=== PATIENT | female | born 1970 | race African-American/Black ===

== ENCOUNTER 2019-09-19 08:00 | Inpatient (IN) | payer OTHER ==
[2019-11-13] MEDS ORDERED: CEFAZOLIN 2 GM in DEXTROSE 5%-WATER - 100 ML IVPB ONE (07:00)
[2019-11-13] MEDS ORDERED: DEXAMETHASONE SOD PHOSPHATE/PF 10 MG/ML SDV ONE (07:11)
[2019-11-13] MEDS ORDERED: MIDAZOLAM HCL 2 MG/2 ML SINGLE DOSE VIAL ONE ×2 (07:12)
[2019-11-13] MEDS ORDERED: SUCCINYLCHOLINE CHLORIDE 200 MG/10 ML SYRINGE ONE (07:25)
[2019-11-13] MEDS ORDERED: ROCURONIUM BROMIDE 100 MG/10 ML VIAL ONE (07:25)
[2019-11-13] MEDS ORDERED: PROPOFOL 20 ML ONE (07:25)
[2019-11-13] MEDS ORDERED: fentaNYL CITRATE 250 MCG/5 ML VIAL ONE (07:25)
[2019-11-13] MEDS ORDERED: ceFAZolin SODIUM 1 GM VIAL ONE (07:26)
--- NOTE | 2019-11-13 08:10 | HP ---
Admitting History and Physical - Primary Care Physician PCP: Lanre Melendez - Admission Chief Complaint: pain, fibroids , menorrhagia History of Present Illness: pain History Source: Patient Limitations to Obtaining History: No Limitations - Past Medical History PMO PROJECT MANAGER: No: Alzheimer's, CVA, Dementia, Migraine, Multiple Sclerosis, Peripheral Neuropathy, Parkinson's, Seizure, Syncope, TIA, Vertigo, Other Cardiovascular: No: AFIB, Aneurysm, Aortic Insufficiency, Aortic Stenosis, CAD, CHF, Deep Vein Thrombosis, HTN, Hyperlipdemia, AR, Mitral Insufficiency, Mitral Stenosis, Murmur, Pulmonary Hypertension, Other Pulmonary: No: Asthma, Bronchitis, Cancer, COPD, O2 Dependent, Pneumonia, Previously Intubated, Pulmonary Embolus, Pulmonary Fibrosis, Sleep Apnea, Other Gastrointestinal: No: Ascites, Cancer, Constipation, Crohn's Disease, Diverticulitis, Diverticulosis, Esophageal Varices, Gastritis, GERD, GI Bleed, Hemorrhoids, Hiatal Hernia, Inflamatory Bowel Disease, Irritable Bowel Disease, Pancreatitis, Peptic Ulcer Disease, Ulcerative Colitis, Other Hepatobiliary: No: Cirrhosis, Cholelithiasis, Cholecystitis, Choledocholithiasis, Hepatitis A, Hepatitis B, Hepatitis C, Other Renal/: No: Renal Failure, Renal Inusuff, BPH, Cancer, Hematuria, Hemodialysis, Neurogenic Bladder, Renal Calculi, UTI, Other Reproductive: No: Ectopic , Endometriosis, Fibroids, PID, Polycystic Ovary Syndrome, Postmenopausal, Other ...LMP: 11/12/19 ...: No Heme/Onc: No: Anemia, B12 Deficiency, Bleeding Disorder, Cancer, Current Chemotherapy, Current Radiation Therapy, Hemochromatosis, Hypercoaguable State, Myeloproliferative Synd, Sickle Cell Disease, Sickle Cell Trait, Thrombocytopenia, Other Infectious Disease: No: AIDS, C-Diff, Herpes Zoster, HIV, MRSA, STD's, Tuberculosis, VREF, Other Psych: No: Addictions, Anxiety, Bipolar, Depression, Panic, Psychosis, Schizophrenia, Other Musculoskeletal: No: Bursitis, Chronic low back pain, Hemiparesis, Hemiplegia, Osteoarthritis, Paraplegia, Other Rheumatology: No: Fibromyalgia, Gout, Lupus, Rheumatoid Arthritis, Sarcoidosis, Vasculitis, Other ENT: No: Allergic Rhinitis, Sinusitis, Other Endocrine: No: Rob's Disease, [place]'s Disease, Diabetes Insipidus, Diabetes Mellitus, Hyperparathyroidism, Hyperthyroidism, Hypothyroidism, Osteopenia, SIADH, Other Dermatology: No: Basal Cell, Cellulitis, Eczema, Melanoma, Psoriasis, Squamous Cell, Other - Past Surgical History Additional Past Surgical History: myomectomies - Advance Directives Advance Directives: Yes: Living Will, Health Care Proxy - Smoking History Smoking history: Never smoked Have you smoked in the past 12 months: No - Alcohol/Substance Use Hx Alcohol Use: No History of Substance Use: reports: None - Social History Usual Living Arrangement: Yes: With Significant Other Do you think of yourself as: Straight/Heterosexual ADL: Independent History of Recent Travel: No Home Medications - Allergies Allergies/Adverse Reactions: Allergies Allergy/AdvReac Type Severity Reaction Status Date / Time seasonal allergies Allergy Uncoded 11/12/19 15:04 - Home Medications Home Medications: Ambulatory Orders Albuterol 0.083% Nebulizer Grace [Ventolin 0.083% Nebulizer Soln -] 1 neb NEB ONCE PRN 11/12/19 Famotidine 20 mg PO DAILY 11/12/19 Metoprolol Succinate 25 mg PO DAILY PRN 11/12/19 Omeprazole 40 mg PO DAILY 11/12/19 Family Medical History Family History: Denies Review of Systems - Review of Systems Constitutional: reports: No Symptoms Eyes: reports: No Symptoms HENT: reports: No Symptoms Neck: reports: No Symptoms Cardiovascular: reports: No Symptoms Respiratory: reports: No Symptoms Gastrointestinal: reports: No Symptoms Genitourinary: reports: No Symptoms Breasts: reports: No Symptoms Reported Musculoskeletal: reports: No Symptoms Integumentary: reports: No Symptoms Neurological: reports: No Symptoms Endocrine: reports: No Symptoms Hematology/Lymphatic: reports: No Symptoms Psychiatric: reports: No Symptoms Physical Examination Vital Signs: Vital Signs Temperature 98.0 F 11/13/19 06:57 Pulse Rate 80 11/13/19 06:57 Respiratory Rate 18 11/13/19 06:57 Blood Pressure 121/74 11/13/19 06:57 O2 Sat by Pulse Oximetry (%) 97 11/13/19 06:57 Constitutional: Yes: Well Nourished, No Distress, Calm Eyes: Yes: WNL, Conjunctiva Clear, EOM Intact HENT: Yes: WNL, Atraumatic, Normocephalic Neck: Yes: WNL, Supple, Trachea Midline Cardiovascular: Yes: WNL, Regular Rate and Rhythm Respiratory: Yes: WNL, Regular, CTA Bilaterally Gastrointestinal: Yes: WNL, Normal Bowel Sounds, Soft ...Rectal Exam: Yes: WNL Renal/: Yes: WNL Breast(s): Yes: WNL Musculoskeletal: Yes: WNL Extremities: Yes: WNL Edema: No Peripheral Pulses WNL: Yes Integumentary: Yes: WNL Wound/Incision: Yes: Clean/Dry, Well Approximated Neurological: Yes: WNL, Alert, Oriented ...Motor Strength: WNL Psychiatric: Yes: WNL, Alert, Oriented Assessment/Plan for mian, one oopherectomy,
[2019-11-13] MEDS ORDERED: HYDROmorphone HCl 2 MG/ML VIAL ONE (08:31)
[2019-11-13] MEDS ORDERED: GLYCOPYRROLATE 0.2 MG/1 ML VIAL ONE (08:47)
[2019-11-13] MEDS ORDERED: DEXAMETHASONE SOD PHOSPHATE 4 MG/1 ML VIAL ONE (08:47)
[2019-11-13] MEDS ORDERED: KETOROLAC TROMETHAMINE 30 MG/1 ML VIAL ONE (08:47)
[2019-11-13] MEDS ORDERED: METOPROLOL TARTRATE 5 MG/5 ML VIAL ONE (08:47)
[2019-11-13] MEDS ORDERED: NEOSTIGMINE METHYLSULFATE 0.5 MG/ML - 10 ML MDV ONE (08:50)
[2019-11-13] MEDS ORDERED: oxyCODONE HCL 5 MG TABLET PO PRN ×2 (10:29)
[2019-11-13] MEDS ORDERED: IBUPROFEN 800 MG/8 ML IJ IVPB PRN (10:29)
[2019-11-13] MEDS ORDERED: ACETAMINOPHEN 325 MG TABLET (FP) PO PRN (10:29)
--- NOTE | 2019-11-13 10:37 | OP ---
Operative Note - Note: Operative Date: 11/13/19 Pre-Operative Diagnosis: fibroids, menorrhagia, pain Operation: mian, salpingectomies x 2 , ovaries saved Findings: adhesions Post-Operative Diagnosis: Same as Pre-op Surgeon: Lanre Melendez Saddle Stitching Machine Operator: Anoop Edmonds Anesthesiologist/COMMUNITY MIDWIFE: Tristen Martinez Anesthesia: General Estimated Blood Loss (mls): 250 (no complication s) Operative Report Dictated: Yes
[2019-11-13] MEDS ORDERED: ACETAMINOPHEN 1000 MG/100 ML VIAL (NON FORMULARY) IVPB ONE ×2 (10:45→10:55)
[2019-11-13] MEDS ORDERED: HYDROmorphone *PCA* 10MG/50ML DISP.SYRIN PCA ONE (11:00)
[2019-11-13 14:17] VITALS: BMI 32.9
--- NOTE | 2019-11-13 14:35 | PN ---
Progress Note (short form) - Note Progress Note: I assisted Dr. Melendez at this surgery for the entirety of the case.
[2019-11-13] MEDS ORDERED: CEFAZOLIN 2 GM in DEXTROSE 5%-WATER - 100 ML IVPB SCH (18:00)
[2019-11-13] MEDS: CEFAZOLIN 2 GM/D5W 2 GM/50 ML ML IVPB SCH (18:06)
[2019-11-13] MEDS: LACTATED RINGERS SOLUTION 1,000 ML IV SCH (19:00)
[2019-11-14] MEDS: CEFAZOLIN 2 GM/D5W 2 GM/50 ML ML IVPB SCH (01:19)
[2019-11-14] MEDS: LACTATED RINGERS SOLUTION 1,000 ML IV SCH ×3 (01:35→19:10)
[2019-11-14 07:27] LABS: BASO % 0.2 % (0-2.0); HEMATOCRIT 33.8 % (32.4-45.2); HEMOGLOBIN 11.5 GM/dL (10.7-15.3); LYMPH % 13.9 % (8-40); MCH 28.8 pg (25.7-33.7); MEAN CELL VOLUME 84.7 fl (80-96); MEAN PLT VOLUME 7.7 fl (7.5-11.1); MONO % 11.6 % (3.8-10.2); NEUT % 74.3 % (42.8-82.8); PLATELET COUNT 291 K/MM3 (134-434); RBC 3.99 M/mm3 (3.60-5.2); RDW 15.7 % (11.6-15.6); WHITE BLOOD COUNT 11.7 K/mm3 (4.0-10.0)
--- NOTE | 2019-11-14 07:34 | PN ---
Progress Note (short form) - Note Progress Note: pod 1, doing well, afebrile, positive bs, will be oob ,and ambulating, , dc pt home tomorrow
[2019-11-14] MEDS ORDERED: IBUPROFEN 600 MG TABLET (FP) PO PRN (08:08)
[2019-11-14] MEDS: PANTOPRAZOLE 40 MG TABLET PO SCH (09:40)
[2019-11-14] MEDS: LACTATED RINGERS SOLUTION 1,000 ML/1,000 ML INFUS.BAG IV SCH ×2 (09:40→11:49)
[2019-11-14] MEDS: ONDANSETRON 4 MG/2 ML VIAL IVPUSH PRN (13:27)
[2019-11-14] MEDS: HYDROmorphone *PCA* 10MG/50ML DISP.SYRIN PCA SCH ×2 (17:06→19:25)
[2019-11-14] MEDS ORDERED: PCA PUMP NR ONE (19:12)
[2019-11-15] MEDS: LACTATED RINGERS SOLUTION 1,000 ML IV SCH ×2 (02:54→14:24)
[2019-11-15] MEDS: PANTOPRAZOLE 40 MG TABLET PO SCH (06:24)
--- NOTE | 2019-11-15 08:56 | PN ---
Progress Note (short form) - Note Progress Note: pod 2 , doing well, afebrile for dc home today
--- NOTE | 2019-11-15 08:57 | DS ---
"Physical Examination Vital Signs: Vital Signs Temperature 98.5 F 11/15/19 04:45 Pulse Rate 86 11/15/19 04:45 Respiratory Rate 18 11/15/19 04:45 Blood Pressure 118/66 11/15/19 04:45 O2 Sat by Pulse Oximetry (%) 93 L 11/15/19 04:45 Constitutional: Yes: Well Nourished, No Distress, Calm Eyes: Yes: WNL, Conjunctiva Clear, EOM Intact HENT: Yes: WNL, Atraumatic, Normocephalic Neck: Yes: WNL, Supple, Trachea Midline Cardiovascular: Yes: WNL, Regular Rate and Rhythm Respiratory: Yes: WNL, Regular, CTA Bilaterally Gastrointestinal: Yes: WNL, Normal Bowel Sounds, Soft ...Rectal Exam: Yes: WNL Renal/: Yes: WNL Breast(s): Yes: WNL Musculoskeletal: Yes: WNL Extremities: Yes: WNL Edema: No Peripheral Pulses WNL: Yes Integumentary: Yes: WNL Wound/Incision: Yes: Clean/Dry, Well Approximated Neurological: Yes: WNL, Alert, Oriented ...Motor Strength: WNL Psychiatric: Yes: WNL, Alert, Oriented Labs: CBC, BMP 11/14/19 06:30 Discharge Summary Problems reviewed: Yes Reason For Visit: FIBROIDS Procedures: Principal: abd partial hysterectomy Other Procedures: none Condition: Good - Instructions Diet, Activity, Other Instructions: Dr. Lanre Melendez Floor Worker [place] discharge instructions Physical activity Resume your normal everyday activity as tolerated no heavy lifting or exercise until seen by your surgeon. You may walk unlimited lisa of and climb stairs. You may resume driving the car when you feel safe and comfortable behind the w heel. No sexual activity as instructed by Dr. Melendez. Wound care If you have a bandage, leave it on, and keep dry for 48-72 hours. After that time discard the outer bandage. If they are tapes on the skin under the out of bandage leave them in place. They will peel off in the next 7 to 10 days. Do Not Peel them off. You may shower the day after surgery. If there are tapes present on the skin, you may shower over them. Diet There are no dietary restrictions. Eat healthy, high-fiber foods. Drink 6 to 8 glasses of liquid each day. This will assist in keeping your bowels are regular. Pain management You may take Tylenol or acetaminophen or Ibuprofen (for example, Motrin, Advil etc.) from my pain prescription medication is ordered should be taken as prescribed for moderate to severe pain. Call Dr. Melendez for any of the following: Severe pain not relieved by medication Fever of 101 or higher Excessive bleeding or drainage on dressing Inability to urinate Call the office for an appointment in seven days. [facility] The Drug Utilization Report below displays all of the controlled substance prescriptions, if any, that your patient has filled in the last twelve months. The information displayed on this report is compiled from pharmacy submissions to the Department, and accurately reflects the information as submitted by the pharmacies. This report was requested by: Warren Mcmillan | Reference #: [id number] Disposition: HOME - Home Medications Comprehensive Discharge Medication List: Ambulatory Orders Albuterol 0.083% Nebulizer Grace [Ventolin 0.083% Nebulizer Soln -] 1 neb NEB ONCE PRN 11/12/19 Famotidine 20 mg PO DAILY 11/12/19 Metoprolol Succinate 25 mg PO DAILY PRN 11/12/19 Omeprazole 40 mg PO DAILY 11/12/19 Prescription Drug Monitoring Program (I-STOP) results: I-STOP reviewed and no issues identified"
[2019-11-15] MEDS ORDERED: DOCUSATE SODIUM 100 MG CAPSULE (FP) PO PRN (09:41)
[2019-11-15] MEDS: HYDROmorphone *PCA* 10MG/50ML DISP.SYRIN PCA SCH (10:45)
[2019-11-15] MEDS: ONDANSETRON 4 MG/2 ML VIAL IVPUSH PRN (10:58)
[2019-11-15] MEDS ORDERED: PCA PUMP NR ONE (11:28)
[2019-11-15 14:02] VITALS: BP 149/95; PULSE 83
[2019-11-15] MEDS: LACTATED RINGERS SOLUTION 1,000 ML/1,000 ML INFUS.BAG IV SCH (14:25)
[2019-11-15 14:34] VITALS: TEMP 100
--- NOTE | 2019-11-19 12:25 | PATH ---
Surgical Pathology Report Patient Name: ALESSANDRA URIARTE [facility]. Rec. #: [id number] /Age/Gender: 1970 (Age: 49) / F Account: [id number] Location: [address] [place] [address] Taken: 11/13/2019 Received: 11/13/2019 Reported: 11/19/2019 Physicians: Lanre Melendez MD Specimen(s) Received A: RIGHT FALLOPIAN TUBE B: LEFT FALLOPIAN TUBE C: UTERUS Clinical History Fibroids Final Diagnosis A. FALLOPIAN TUBE, RIGHT, EXCISION: SEGMENT OF FALLOPIAN TUBE WITH NO PATHOLOGIC FINDINGS. B. FALLOPIAN TUBE, LEFT, EXCISION: SEGMENT OF FALLOPIAN TUBE WITH NO PATHOLOGIC FINDINGS. C. UTERUS, SUPRACERVICAL HYSTERECTOMY: UTERUS (WEIGHT: 305 G) SHOWING PROLIFERATIVE ENDOMETRIUM, ADENOMYOSIS AND LEIOMYOMATA. Electronically Signed Zahira Montero M.D. Gross Description A. Received in formalin labeled "right fallopian tube," is a 3 cm in length fimbriated fallopian tube. The outer surface is beaver purple and smooth. Sectioning reveals an unremarkable lumen. Wash Mill Operator sections are submitted in 2 cassettes as follows: 1-fimbria; 2-cross sections of fallopian tube. B. Received in formalin labeled "left fallopian tube," is a 0.5 cm in length fimbriated portion of fallopian tube. The outer surface is beaver purple smooth. Sectioning reveals an unremarkable lumen. The specimen is entirely submitted in 2 cassettes as follows: 1-fimbria; 2-cross sections of fallopian tube. C. Received in formalin labeled "uterus," is a 305 g supracervically amputated uterus with no attached adnexa. The specimen measures 10 cm from superior to inferior, 7.5 cm from left to right and 5.5 cm from anterior to posterior. There is a 7 cm in greatest dimension large bulging subserosal nodule adjacent to the right cornua. The endometrial cavity measures 3.5 cm in length and 0.8 cm from cornu to cornu. The cavity appears stenotic. The endometrium is dixon-red and averages 0.1 cm in thickness. The myometrium is dixon with whorled architecture and displays focal small hemorrhagic cystic structures, consistent with adenomyosis. The myometrium averages 2.5 cm in thickness. There are multiple small intramural nodules present. The cut surface of the subserosal nodule and the intramural nodules is dixon and rubbery with whorled architecture. No areas of hemorrhage or necrosis are identified. Wash Mill Operator sections are submitted in 10 cassettes as follows: 1-cervical stump margin of resection; 5-1-eslcgpud endomyometrium; 7-8-xkyzchezn endomyometrium; 6-8-large subserosal nodule; 8-13-tdmnxhvemp nodules. 11/14/2019 saudi11/14/2019
--- NOTE | 2019-11-23 12:22 | OP ---
DATE OF OPERATION: 11/13/2019 PREOPERATIVE DIAGNOSIS: Menorrhagia, large fibroid uterus, and pelvic pain. POSTOPERATIVE DIAGNOSIS: Menorrhagia, large fibroid uterus, and pelvic pain. Pelvic fibroids, large, and adhesions. PROCEDURE: Supracervical hysterectomy, abdominal, and salpingectomy x2, and the ovary was saved. FINDINGS: Adhesions and large fibroids. SURGEON: Lanre Melendez MD MATTRESS SPRING ENCASER: Anoop Edmonds MD ANESTHESIOLOGIST: Brando Martinez MD ANESTHESIA: General. BLOOD LOSS: About 250 mL. INDICATIONS: This is a 49-year-old female patient, has a history of large fibroid uterus. The patient has history of myomectomy in the past, and patient now has suffered from this pelvic pain and menorrhagia for many years, and patient had postponed this procedure. Patient's pain is becoming worse, and the patient finally wanted to take these fibroids out. The patient understands this is going to be a hysterectomy. Patient had a myomectomy before. Patient is 49 years old. She insists to save her ovary because she does not want to go through menopause yet, and she agreed that salpingectomy could be done because of no need to save the tubes at all. Patient also agreed for saving part of her cervix, so supracervical salpingectomy was discussed, and the patient agreed. DESCRIPTION OF PROCEDURE: Patient was taken to the OR, placed on the operating table in supine position. After general anesthesia was obtained, the patient's abdomen and pelvis were prepped and draped in the usual sterile manner. Following a Pfannenstiel incision, incision was made through skin and subcutaneous tissue until the fascia was nicked in the midline. Fascia was extended bilaterally. The intraperitoneal cavity was entered, and at this time uterus was expelled outside of the abdominal cavity. It was about 12- to 14-week size with multiple fibroids, one large about 5 x 6 cm, and there were a few more big ones intramurally, so uterus about 12- to 14-week size. Then we do see the adhesion of bladder flap adhesed to the anterior lower segment area of the uterus. The bladder flap was created and pushed down. At this time we proceeded with the round ligaments, and the round ligament was dissected from the right side and the transected and suture ligated, and the broad ligament was dissected anteriorly to the bladder reflection and posterior to the uterosacral ligament area. Patient wanted to save her ovary, so the salpingectomy was performed and good hemostasis. At this time we proceeded to skeletonize the uterine artery. Both of the uterine arteries were skeletonized and were doubly transected with Dany clamps with good hemostasis. Uterine artery was transected, and then we proceeded to continue with the Dany clamp to the dissection lower down to the uterosacral ligament and hugging the cervix, very close to the cervix, then punched until part of the cervix was reached and the bladder reflection was dissected down. Good urine output, and the urine was clear during all these times. No complications and good hemostasis from ipsilateral side of the cardinal ligament. The same fashion, same technique was applied to the left side of the uterus, and the same thing, uterine artery was skeletonized and double transected and suture ligated, and then hugging the cervix with a Dany clamp, we transected slightly down to the cardinal ligament until the cervix. Good hemostasis, and uterus and cervix of the cervix was removed, and the cervical stump was sutured with [id number] stitches. Good hemostasis, no complications. Blood loss about 250 mL. Patient tolerated the procedure well. Peritoneum was closed. Fascia was closed. Skin was closed, transferred to recovery room in stable condition. MD KLAUS HERNANDEZ/[id number]
== END 2019-11-15 16:02 | disposition home or self-care (01) | DRG 743 ==
LOC: J2C 11-13 04:25 → J6S 11-13 13:59
PROVIDERS: ADMIT Obstetrics & Gynecology; ATTEND Obstetrics & Gynecology
PROC: 0UT70ZZ Resection of Bilateral Fallopian Tubes, Open Approach (ICD-10-PCS; 2019-11-13)
PROC: 0UT90ZL Resection of Uterus, Supracervical, Open Approach (ICD-10-PCS; principal; 2019-11-13 08:00)
DX: D25.9 Leiomyoma of uterus, unspecified (principal); N92.0 Excessive and frequent menstruation with regular cycle
CPT/HCPCS: 36415; 81025; 85025; 86850; 86900; 86901; 86922; 88302-TC; 88307-TC; 94010; 94760; J0131